=== PATIENT | female | born 1950 ===

== ENCOUNTER 2023-03-30 08:24 | Day surgery (SDC) | payer MEDICARE, BC ==
[2023-03-30] MEDS ORDERED: Proparacaine 0.5% Ophth Soln 15 ML Bottle EYELF ONE ×2 (08:30→09:30)
[2023-03-30] MEDS ORDERED: Povidone-Iodine 5% Sterile Ophth Soln 30 ML Bottle EYELF ONE ×2 (08:30→09:30)
[2023-03-30] MEDS ORDERED: Acetaminophen 325 MG Tab PO PRN (08:30)
[2023-03-30] MEDS ORDERED: Phenylephrine 10% Ophth Soln 5 ML Bot EYELF PRN (08:30)
[2023-03-30] MEDS ORDERED: Acetaminophen/Codeine 300-30 MG Tab PO PRN (08:30)
[2023-03-30] MEDS ORDERED: Moxifloxacin 0.5% Ophth Soln 3 ML Bottle EYELF ONE (08:30)
[2023-03-30] MEDS ORDERED: Sodium Chloride 0.9% 10 ML Syringe FLUSH PRN (08:30)
[2023-03-30] MEDS ORDERED: Cataract Ophth Solution EYELF ONE (08:30)
[2023-03-30] MEDS ORDERED: Tropicamide 1% Ophth Soln 15 ML Bottle EYELF ONE (08:30)
[2023-03-30] MEDS ORDERED: Timolol Maleate 0.5% Ophth Soln 5 ML Bottle EYELF ONE (08:30)
[2023-03-30] MEDS ORDERED: Ondansetron 4 MG/2 ML SDV IVPUSH PRN (08:30)
[2023-03-30] MEDS ORDERED: Diclofenac Sodium 0.1% Ophth Soln 5 ML Bottle EYELF ONE (09:30)
[2023-03-30] MEDS ORDERED: Lidocaine 1% 5 ML VIAL ONE (09:30)
[2023-03-30] MEDS ORDERED: Vancomycin 500 MG SDV EYELF ONE (09:30)
[2023-03-30] MEDS ORDERED: Chondroitin Sulfate/Hyaluronate Sodium Ophth Inj 0.75 ML Syringe EYELF ONE (09:30)
[2023-03-30] MEDS ORDERED: Apraclonidine 0.5% Ophth Soln 5 ML Bot EYELF ONE (09:30)
[2023-03-30] MEDS ORDERED: Balanced Salt Solution Ophth Irrig 500 ML Bottle IOCULAR ONE (09:30)
[2023-03-30] MEDS ORDERED: Dexamethasone/Neomycin/Polymyxin B Ophth Oint 3.5 GM Tube EYELF ONE (09:30)
== END 2023-03-30 10:40 | disposition home or self-care (01) ==
LOC: DL.SDS 08:24
PROVIDERS: ATTEND Ophthalmology
DX: H25.812 Combined forms of age-related cataract, left eye (principal); E78.5 Hyperlipidemia, unspecified; E03.9 Hypothyroidism, unspecified
CPT/HCPCS: 00142; A9270-GY; J3370; J3490

== ENCOUNTER 2023-04-20 07:55 | Day surgery (SDC) | payer MEDICARE, BC ==
[2023-04-20] MEDS ORDERED: Dexamethasone 4 MG/ML SDV IV ONE (07:56)
[2023-04-20] MEDS ORDERED: Midazolam 1 MG/ML 2 ML SDV IV ONE (07:56)
[2023-04-20] MEDS ORDERED: Sodium Chloride 0.9% 10 ML Syringe IV ONE (07:56)
[2023-04-20] MEDS ORDERED: Povidone-Iodine 5% Sterile Ophth Soln 30 ML Bottle EYERT ONE ×2 (08:00→08:56)
[2023-04-20] MEDS ORDERED: Proparacaine 0.5% Ophth Soln 15 ML Bottle EYERT ONE ×2 (08:00→08:56)
[2023-04-20] MEDS ORDERED: Sodium Chloride 0.9% 10 ML Syringe FLUSH PRN (08:00)
[2023-04-20] MEDS ORDERED: Acetaminophen/Codeine 300-30 MG Tab PO PRN (08:00)
[2023-04-20] MEDS ORDERED: Cataract Ophth Solution EYERT ONE (08:00)
[2023-04-20] MEDS ORDERED: Timolol Maleate 0.5% Ophth Soln 5 ML Bottle EYERT ONE (08:00)
[2023-04-20] MEDS ORDERED: Moxifloxacin 0.5% Ophth Soln 3 ML Bottle EYERT ONE (08:00)
[2023-04-20] MEDS ORDERED: Phenylephrine 10% Ophth Soln 5 ML Bot EYERT PRN (08:00)
[2023-04-20] MEDS ORDERED: Acetaminophen 325 MG Tab PO PRN (08:00)
[2023-04-20] MEDS ORDERED: Tropicamide 1% Ophth Soln 15 ML Bottle EYERT ONE (08:00)
[2023-04-20] MEDS ORDERED: Ondansetron 4 MG/2 ML SDV IVPUSH PRN (08:00)
[2023-04-20] MEDS ORDERED: Vancomycin 500 MG SDV EYERT ONE (09:00)
[2023-04-20] MEDS ORDERED: Chondroitin Sulfate/Hyaluronate Sodium Ophth Inj 0.75 ML Syringe EYERT ONE (09:00)
[2023-04-20] MEDS ORDERED: Balanced Salt Solution Ophth Irrig 15 ML Bottle EYERT ONE (09:00)
[2023-04-20] MEDS ORDERED: Lidocaine 1% 30 ML SDV ONE (09:00)
[2023-04-20] MEDS ORDERED: Diclofenac Sodium 0.1% Ophth Soln 5 ML Bottle EYERT ONE (09:08)
[2023-04-20] MEDS ORDERED: Dexamethasone/Tobramycin 0.1-0.3% Ophth Oint 3.5 GM Tube EYERT ONE (09:08)
[2023-04-20] MEDS ORDERED: Brimonidine 0.2% Ophth Soln 5 ML Bottle EYERT ONE (09:08)
[2023-04-20] MEDS ORDERED: Dexamethasone/Neomycin/Polymyxin B Ophth Oint 3.5 GM Tube EYERT ONE (09:09)
== END 2023-04-20 10:00 | disposition home or self-care (01) ==
LOC: DL.SDS 07:55
PROVIDERS: ATTEND Ophthalmology
DX: H25.811 Combined forms of age-related cataract, right eye (principal); I10 Essential (primary) hypertension; E03.9 Hypothyroidism, unspecified; E78.00 Pure hypercholesterolemia, unspecified; E66.9 Obesity, unspecified; Z98.890 Other specified postprocedural states; Z68.37 Body mass index [BMI] 37.0-37.9, adult; Z88.2 Allergy status to sulfonamides
CPT/HCPCS: 00142; 66984; A9270; J3370; J1100; J2250; J3490